=== PATIENT | female | born 2000 | race African-American/Black ===

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

== ENCOUNTER 2019-01-12 11:59 | Emergency (ER) | payer OTHER ==
[~2019-01-12] VITALS: Ht 160 cm; Wt 77.1 kg
[2019-01-12 12:36] LABS: PLATELET COUNT 296 K/uL (152-353)
[2019-01-12 12:45] LABS: POTASSIUM 3.9 mmol/L (3.6-5.2)
[2019-01-12 15:05] VITALS: BP 136/69; TEMP 97.5
== END 2019-01-12 15:20 | disposition home or self-care (01) ==
LOC: ED 11:59
PROVIDERS: Emergency Medicine
DX: R10.11 Right upper quadrant pain (principal); R10.12 Left upper quadrant pain; N83.202 Unspecified ovarian cyst, left side; N83.201 Unspecified ovarian cyst, right side
CPT/HCPCS: 80053; 81000; 81025; 82150; 83690; 85027; 99283; Q9963

== ENCOUNTER 2020-09-18 13:15 | Emergency (ER) | payer OTHER ==
[~2020-09-18] VITALS: Ht 160 cm; Wt 77.1 kg
[2020-09-18 16:28] LABS: PLATELET COUNT 280 K/uL (152-353)
[2020-09-18 16:35] LABS: POTASSIUM 3.9 mmol/L (3.6-5.2)
[2020-09-18 19:00] VITALS: BP 112/81; TEMP 98.1
== END 2020-09-18 19:00 | disposition home or self-care (01) ==
LOC: ED 13:15
PROVIDERS: Family Medicine
DX: U07.1 COVID-19 (principal); R11.2 Nausea with vomiting, unspecified; R51.9 Headache, unspecified
CPT/HCPCS: 80053; 81000; 81025; 82150; 83690; 85027; 85379; 87502; 87635; 87651; 99283; U0003